=== PATIENT | male | born 1935 | race Caucasian/White ===

== ENCOUNTER 2018-05-17 16:00 | Inpatient (IN) | payer OTHER ==
[~2018-05-17] VITALS: Ht 177.8 cm; Wt 84.5 kg
--- NOTE | ~2018-05-17 | D ---
[facility] [place] [address] DISCHARGE SUMMARY Name: CLAUDINE HERRERA Room #: 216-P [facility] IN M.R.#: [id number] Admission: 05/17/18 Attend Phys: Lester Quiroz MD Discharge: 05/19/18 Date of : 35 Report #: [id number] THIS REPORT FOR: //name// CC: [facility] physician/PCP Lester Quiroz DISCHARGE DIAGNOSES: 1. Syncope. 2. Third-degree heart block. 3. Ischemic cardiomyopathy. PROCEDURES PERFORMED: [employer] biventricular pacemaker implantation. HISTORY OF PRESENT ILLNESS: The patient is an 82-year-old who has recently been having multiple syncopal episodes. He underwent front desk monitor placement, which showed frequent episodes of third-degree heart block. He underwent successful implantation of a [employer] biventricular pacemaker. There were no procedural complications. HOSPITAL COURSE: He was monitored overnight. On telemetry, he remained in an AV sequential paced rhythm. On the day of discharge, he underwent chest x-ray, which showed stable lead position, no pneumothorax. Device interrogation showed normal device function and his incision was healing nicely. DISCHARGE INSTRUCTIONS: As such, he was deemed stable for discharge home with instructions to follow up with me in 7-10 days for a site check. <ELECTRONICALLY SIGNED> By: Lester Quiroz MD 05/28/18 1448 [id number] 1238 Lester Quiroz MD /jrodan
--- NOTE | ~2018-05-17 | P ---
[facility] [place] [address] PROCEDURE REPORT Name: CLAUDINE HERRERA Room #: 216-P [facility] IN M.R.#: [id number] Admission: 05/17/18 Attend Phys: Lester Quiroz MD Discharge: 05/19/18 Date of : 35 Report #: [id number] THIS REPORT FOR: //name// CC: [facility] physician/PCP Lester Quiroz PROCEDURE: Bi-V pacemaker implantation. PREOPERATIVE DIAGNOSES: 1. Third-degree heart block. 2. Syncope. 3. Ischemic cardiomyopathy, ejection fraction of 35-40%. HISTORY: The patient is an 82-year-old gentleman who has history of coronary artery disease, ischemic cardiomyopathy of 35-40%, who has had multiple recurrent syncopal episodes in the past week. He has worn a inside tester, which showed multiple episodes of complete heart block. His most recent echo shows an EF of 35-40%. In anticipation of 100% right ventricular pacing, I have recommended that he undergo a biventricular pacemaker implantation. ANESTHESIA: The patient underwent MAC anesthesia with no anesthesia related complications. DESCRIPTION OF PROCEDURE: The patient underwent informed consent. We discussed the details of the procedure including the risks, which include but not limited to bleeding, infection, vascular damage, cardiac perforation as well as pneumothorax. He understood these risks and is willing to proceed. The patient was brought to the EP Laboratory in a fasting and sedated state and received IV antibiotics prior to initiation of the procedure. A venogram was performed demonstrating patency of the left axillary vein. Next, I injected lidocaine below the level of left clavicle, incision was made, pocket was created over the prepectoral fascia. Access was obtained 3 times to the left axillary vein. The first access was straightforward. The second attempts at access hit the artery twice, felt some pressure and then repositioned and I was able to find the vein for second and third time. Guidewires were noted to be into the right atrium. Next, sheaths were positioned using the modified Seldinger technique and leads were positioned under fluoroscopy. First, the RV lead was positioned in the right ventricular apex with adequate pacing and sensing thresholds, but the R waves did decrease and therefore prior to positioning the coronary sinus lead, I repositioned the RV lead and the numbers were improved. I then positioned the atrial lead and there was adequate pacing and sensing thresholds. The atrial and ventricular leads were sutured to the prepectoral fascia. Then I placed the guide sheath into the coronary sinus and obtained access to the coronary sinus with ease. I performed a coronary sinus venogram and there were 2 posterior lateral branches. There was one that was more proximal and another vessel that was more distal. I was able to engage the [facility] [address] [place] [address] PROCEDURE REPORT Name: DENIZAWAISCLAUDINE Room #: 216-P [facility] IN M.R.#: [id number] Admission: 05/17/18 Attend Phys: Lester Quiroz MD Discharge: 05/19/18 Date of : 35 Report #: [id number] more proximal vessel. This was a tortuous vessel, therefore we did switch to ____ wire that allowed this to deliver the lead deep into this vessel. There was adequate pacing and sensing thresholds at multiple sites with no diaphragmatic stimulation. Therefore, the sheath was split and the lead remained in position. The LV lead was sutured to the prepectoral fascia. Then, the device was connected to the leads, tested and all leads were functioning normally. The pocket was irrigated with vancomycin and then the pocket was closed in 3 layers using 2-0 for the deep layer, 3-0 for the mid layer, 4-0 for the subcuticular. Surgical glue was placed to the outer skin layer. The patient awoke neurologically and hemodynamically intact. No complications and no significant bleed. The implanted pacemaker was a [employer] model # [id number], serial #[id number]. Atrial lead was a [employer] model #2088TC, 52 cm; serial # [id number] with a P-wave of 2.4 millivolts, pacing impedance of 460 ohms and a pacing threshold 0.5 volts at 0.4 milliseconds. The RV lead was a [employer] model #2088TC, serial number was [id number]. This lead demonstrated R-wave of 10 millivolts, pacing impedance of 650 ohms and a pacing threshold of 0.5 volts at 0.4 milliseconds. The LV lead was a [employer] model #1458Q, 86 cm; serial [id number]. This lead demonstrated pacing threshold of 0.75 volts at 0.4 milliseconds with a pacing impedance of 660 ohms and we utilized the M3-P4 pacing configuration as this was more basal pacing configuration. The device was programmed to the DDDR 60-130 mode. CONCLUSIONS: 1. Successful Bi-V pacemaker implantation. 2. Satisfactory atrial, right ventricular and left ventricular pacing and sensing thresholds. <ELECTRONICALLY SIGNED> By: Lester Quiroz MD 05/28/18 1448 1306 0219 Lester Quiroz MD /nt
--- NOTE | ~2018-05-17 | EKG ---
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: DIONNE : 1935 Requested By: Lester Quiroz Order Number: [id number] MD: Anton Bird Measurements Intervals [place] Rate: 49 P: 10 [place]: 212 QRS: 116 QRSD: 179 T: 63 QT: 507 QTc: 458 Interpretive Statements Sinus bradycardia with first-degree AV block Right bundle branch block Compared to ECG 07/10/2001 06:46:44 Right bundle-branch block now present First degree AV block is now present Electronically Signed On 05-18-2018 16:41:30 CDT by Anton Bird [email or web address] <ELECTRONICALLY SIGNED> By: Anton Bird MD, [facility] 05/18/18 1641 0852 0852 Anton Bird MD, [facility] /EPI
[2018-05-17 16:41] LABS: HEMATOCRIT 39.3 % (42.0-52.0); HEMOGLOBIN 13.5 gm/dL (14.0-18.0); MCHC 34.4 g/dL (28.0-37.0); MCV 90.3 fL (80.0-100.0); RBC 4.35 mil/uL (4.50-6.00); WBC 6.9 thou/uL (4.0-11.0)
[2018-05-17 16:58] VITALS: BP 155/70
[2018-05-17] MEDS ORDERED: AMLODIPINE BESYL5 M1 PO (16:58)
[2018-05-17] MEDS ORDERED: ASPIR 8181 MG PO (16:59)
[2018-05-17] MEDS ORDERED: GLYBURIDE 2.52.5 MG PO (16:59)
[2018-05-17] MEDS ORDERED: CELEXA10 MG PO (16:59)
[2018-05-17 17:00] LABS: INR 1.1
[2018-05-17] MEDS ORDERED: OMEGA-31000 M1 PO (17:01)
[2018-05-17] MEDS ORDERED: PIOGLITAZONE15 MG (17:01)
[2018-05-17] MEDS ORDERED: ZOCOR20 MG PO (17:03)
[2018-05-17] MEDS ORDERED: PIOGLITAZONE15 MG PO (17:03)
[2018-05-17] MEDS ORDERED: PROTONIX40 M1 PO (17:03)
[2018-05-17 17:04] LABS: ALBUMIN 3.3 g/dL (3.4-5.0); CALCIUM 8.8 mg/dL (8.5-10.1); CREATININE 1.9 mg/dL (0.7-1.3); POTASSIUM 4.9 mmol/L (3.5-5.1); TOTAL BILIRUBIN 0.4 mg/dL (<0.1-1.0); TOTAL PROTEIN 6.8 g/dL (6.4-8.2)
[2018-05-17] MEDS ORDERED: MICARDIS HCT 81 EACH PO (17:04)
[2018-05-17 20:30] VITALS: BP 162/52
[2018-05-18] VITALS (12 sets, daily range): BP systolic 15–181; BP diastolic 52–66
[2018-05-19 00:08] VITALS: BP 142/67
[2018-05-19 04:45] VITALS: BP 149/53
[2018-05-19 08:10] VITALS: BP 141/68
[2018-05-19 10:21] VITALS: BP 141/68
== END 2018-05-19 11:02 | disposition home or self-care (01) | DRG 244 ==
LOC: 2N 16:00
PROVIDERS: Nurse Practitioner Gerontology
PROC: B51N1ZZ Fluoroscopy of Left Upper Extremity Veins using Low Osmolar Contrast (ICD-10-PCS; principal; 2018-05-18)
PROC: 02HK3JZ Insertion of Pacemaker Lead into Right Ventricle, Percutaneous Approach (ICD-10-PCS; principal; 2018-05-18)
PROC: 02HL3JZ Insertion of Pacemaker Lead into Left Ventricle, Percutaneous Approach (ICD-10-PCS; principal; 2018-05-18)
PROC: 02H63JZ Insertion of Pacemaker Lead into Right Atrium, Percutaneous Approach (ICD-10-PCS; principal; 2018-05-18)
PROC: 0JH607Z Insertion of Cardiac Resynchronization Pacemaker Pulse Generator into Chest Subcutaneous Tissue and Fascia, Open Approach (ICD-10-PCS; principal; 2018-05-18)
DX: I44.2 Atrioventricular block, complete (principal); I25.5 Ischemic cardiomyopathy; N18.9 Chronic kidney disease, unspecified; E11.22 Type 2 diabetes mellitus with diabetic chronic kidney disease; I12.9 Hypertensive chronic kidney disease with stage 1 through stage 4 chronic kidney disease, or unspecified chronic kidney disease; E78.00 Pure hypercholesterolemia, unspecified; I25.10 Atherosclerotic heart disease of native coronary artery without angina pectoris; I25.2 Old myocardial infarction; Z95.5 Presence of coronary angioplasty implant and graft; Z90.49 Acquired absence of other specified parts of digestive tract; Z79.899 Other long term (current) drug therapy
CPT/HCPCS: 10081; 62110; 62900; 70005

== ENCOUNTER 2019-01-29 17:56 | Inpatient (IN) | payer OTHER ==
[2019-01-29] VITALS (8 sets, daily range): BP systolic 145–179; BP diastolic 40–78
[~2019-01-29] VITALS: Ht 177.8 cm; Wt 87.4 kg
[~2019-01-29 17:56] MED LIST: AMLODIPINE BESYL5 M1 PO; ASPIR 8181 MG PO; CELEXA10 MG PO; GLYBURIDE 2.52.5 MG PO; MICARDIS HCT 81 EACH PO; OMEGA-31000 M1 PO; PIOGLITAZONE15 MG; PIOGLITAZONE15 MG PO; PROTONIX40 M1 PO; ZOCOR20 MG PO
--- NOTE | 2019-01-29 18:07 | NUR ---
CODE STROKE CALLED
[2019-01-29 18:47] LABS: ABSOLUTE NEUTROPHILS 4.1 thou/uL (1.4-8.2); BASOPHILS 1.2 % (0.0-2.0); EOSINOPHILS 2.2 % (0.0-3.0); HEMATOCRIT 38.9 % (42.0-52.0); HEMOGLOBIN 13.3 gm/dL (14.0-18.0); LYMPHOCYTES 19.9 % (24.0-44.0); MCH 30.5 pg (26.0-34.0); MCHC 34.2 g/dL (28.0-37.0); MCV 89.1 fL (80.0-100.0); PLATELET COUNT 116 thou/uL (150-400); POLYS 64.7 % (36.0-66.0); RBC 4.37 mil/uL (4.50-6.00); RDW 14.1 % (10.5-14.5); WBC 6.3 thou/uL (4.0-11.0)
[2019-01-29 18:54] LABS: ANION GAP 9 mmol/L (7-16); BUN 29 mg/dL (7-18); CHLORIDE 106 mmol/L (98-107); CO2 27 mmol/L (21-32); CREATININE 1.8 mg/dL (0.7-1.3); GLUCOSE 148 mg/dL (74-106); POTASSIUM 4.5 mmol/L (3.5-5.1); SODIUM 142 mmol/L (136-145)
[2019-01-29 18:58] LABS: APTT 26.6 Seconds (24.5-32.8); PROTIME 10.7 Seconds (9.3-11.4)
[2019-01-29 19:05] LABS: ALBUMIN 3.5 g/dL (3.4-5.0); SGOT 19 U/L (15-37); SGPT 29 U/L (30-65); TOTAL BILIRUBIN 0.5 mg/dL (<0.1-1.0); TROPONIN-I <0.06 ng/mL (<0.06)
[2019-01-30] VITALS (32 sets, daily range): BP systolic 104–167; BP diastolic 39–76
--- NOTE | 2019-01-30 01:05 | NUR ---
PT ARRIVED FROM ED AT 2047 ACCOMPANIED BY ED STAFF, JERICHO. PT ALERT AND ORIENTED X4. PT ABLE TO FOLLOW COMMANDS AND HAS BEEN APPROPRIATED. DENIES ANY DEFICITS AT THIS TIME. NIH CONSISTANTLY A 0 SINCE ARRIVAL. PT V-PACED ON THE MONITOR. BP PERMISSIVELY HYPERTENSIVE PER POST TPA PROTOCOL. STROKE PACKET AND INFORMATION PROVIDED TO PT. WILL CONTINUE TO MONITOR PT.
[2019-01-30 04:56] LABS: HEMATOCRIT 37.5 % (42.0-52.0); HEMOGLOBIN 12.9 gm/dL (14.0-18.0); MCH 30.8 pg (26.0-34.0); MCHC 34.3 g/dL (28.0-37.0); MCV 89.8 fL (80.0-100.0); RBC 4.17 mil/uL (4.50-6.00); RDW 13.9 % (10.5-14.5); WBC 6.9 thou/uL (4.0-11.0)
[2019-01-30 05:15] LABS: ANION GAP 8 mmol/L (7-16); BUN 27 mg/dL (7-18); CALCIUM 8.6 mg/dL (8.5-10.1); CHLORIDE 107 mmol/L (98-107); CHOLESTEROL 114 mg/dL (<200); CO2 26 mmol/L (21-32); CREATININE 1.5 mg/dL (0.7-1.3); GLUCOSE 159 mg/dL (74-106); HDL CHOLESTEROL 27 mg/dL (>40); LDL CHOLESTEROL 57 mg/dL (<100); POTASSIUM 3.8 mmol/L (3.5-5.1); SODIUM 141 mmol/L (136-145); TC:HDL 4.2 Ratio (Not establshd); TRIGLYCERIDE 154 mg/dL (<150); VLDL 31 mg/dL (<40)
[2019-01-30 05:16] LABS: SERUM ASSESSMENT Clear
--- NOTE | 2019-01-30 08:02 | EKG ---
[place] [address] [facility] [place] [address] ELECTROCARDIOGRAM REPORT Name: CLAUDINE HERRERA Room #: 242-P ADM IN M.R.#: [id number] ������������������ Admission: 01/29/19 ������������������ Attend Phys: Edwin Hendrickson MD Discharge: ������������������ Date of : 35 Report #: [id number] ����������������������������������������������������������������� [id number] THIS REPORT FOR: //name// [facility] ED Test Date: 2019-01-29 Test Time: 18:04:58 Pat Name: CLAUDINE HERRERA Department: Room: 242 Gender: M Supervisor Anodizing: Bere Holman : 1935 Requested By: Macho Tompkins Order Number: [id number] MD: Anton Bird Measurements Intervals [place] Rate: 64 P: 15 NC: 208 QRS: 214 QRSD: 146 T: 62 QT: 454 QTc: 469 Interpretive Statements Atrial-sensed ventricular-paced complexes No further analysis attempted due to paced rhythm Compared to ECG 05/18/2018 08:52:00 Sinus bradycardia no longer present Electronically Signed On 01-30-2019 8:02:10 CDT by Anton Bird [email or web address] ��������������������������������������������� <ELECTRONICALLY SIGNED> ���������������������������������������� By: Anton Bird MD, [facility] ��������������������������������������������� 01/30/19 0802 180 180 Anton Bird MD, [facility] /EPI
[2019-01-30 14:05] LABS: GLYCOHEMOGLOBIN (HGB A1C) 6.4 % (4.8-5.6)
--- NOTE | 2019-01-30 17:09 | NUR ---
INITIAL ASSESSMENT: Received consult for discharge planning. SW reviewed chart and spoke with nursing and attending physician. Pt was admitted from home due to acute CVA/LLE weakness. Pt had TPA-therapy evaluations on hold at this time. SW met with pt at bedside. Introduced role of SW. Pt is alert/orientated x 4. Pt reports he lives at home with his , who is in good health. Prior to admission, pt was independent with ADLs. Pt walks twice a day for exercise. Pt has 0 steps to enter and 14 steps inside the home. Pt's bedroom is on the ground level. Pt does not use any DME. No hx of SNF/Rehab placement. Pt has had HH services in the past following surgery. Pt is unsure of HH provider. Pt's PCP is Dr. Vianca Koo. Pt's c d stripper is Dr. Edmonds. PT/OT rosalio pending. Plan is for pt to discharge home when medically stable. SW is following to assist as needed with discharge planning.
[2019-01-31] VITALS (15 sets, daily range): BP systolic 113–155; BP diastolic 43–89
--- NOTE | 2019-01-31 04:39 | NUR ---
ASSUMED PT CARE AT 1900. PT IS ALERT AND ORIENTED. NO FAMILY AT BEDSIDE. PT DENIES ANY NEED & PAIN. ASSESSMENT CHARTED AND COMPLETED. VITAL SIGNS STABLE. PT IS TRANSPORTED FOR CT OF THE HEAD. PT DENIES ANY PAIN. SCHEDULED MEDS ADMINISTERED TO PT. PT TOLERATED PO INTAKE. PT IS STABLE THORUGHOUT THE NIGHT. FALL PRECAUTION IN PLACE. SCD'S PLACED ON PT. PT IS STABLE THROUGHOUT THE NIGHT. DENIES ANY FURTHER NEEDS AT THIS TIME.
--- NOTE | 2019-01-31 09:23 | HC ---
[facility] [place] [address] CONSULTATION Name: CLAUDINE HERRERA Room #: 242-P [facility] IN M.R.#: [id number] Admission: 01/29/19 ������������������ Attend Phys: Edwin Hendrickson MD Discharge: ������������������ Date of : 35 Report #: [id number] THIS REPORT FOR: //name// CC: REIC Hendrickson NEUROLOGY CONSULT HISTORY OF PRESENT ILLNESS: The patient is an 83-year-old male who came to the Emergency Room yesterday evening when he had difficulty moving his left leg. This occurred 45 minutes prior to arrival. En route, the patient regained the ability to move his leg, but while he was in the Emergency Room, he noticed a recurrence of symptoms and TPA was administered. Today, he has no evidence of lower extremity weakness. In fact, he states that he would like to go home. The patient denies ever having an episode like this in the past. He states that he was not taking aspirin prior to this event; however, I read in the record that he was taking aspirin 81 mg daily. PAST MEDICAL HISTORY: Coronary artery disease, cardiomyopathy, noninsulin dependent diabetes mellitus, hypertension, hypercholesterolemia, gastroesophageal reflux, depression/anxiety. PAST SURGICAL HISTORY: Coronary artery stent placement x 2, cholecystectomy, exploratory surgery of the right kidney. MEDICATIONS AT HOME: Norvasc 5 mg daily, aspirin 81 mg daily, citalopram 10 mg daily, glyburide 6 mg in the morning, fish oil 1000 mg daily, Actos 45 mg daily, pantoprazole 40 mg daily, simvastatin 20 mg at bedtime, Micardis daily. ALLERGIES: None. PHYSICAL EXAMINATION: VITAL SIGNS: Temperature 36.9, pulse rate 69, respiratory rate 15, blood pressure 160/54, bedside pulse oximetry 97% on 1 liter. NEUROLOGIC: Cranial nerves 2-12 are grossly intact. Motor exam demonstrates symmetrical strength in all 4 extremities with tone and bulk normal. Reflexes are symmetrical throughout. Coordination reveals intact [id number]. Casual gait was not tested. LABORATORY DATA: White blood cell count 6.9, hemoglobin 12.9, hematocrit 37.5, platelet count 99,000. INR 1. Chemistry: Sodium 141, potassium 3.8, chloride 107, carbon dioxide 26, BUN 27, creatinine 1.5, GFR 45, glucose 159. Liver functions normal. Triglyceride 154, cholesterol 114, LDL cholesterol 57, HDL cholesterol 27. IMAGING STUDIES: CT scan of the head is normal. [address] [address] CONSULTATION Name: CLAUDINE HERRERA Room #: 242-P [facility] IN ..#: [id number] Admission: 01/29/19 ������������������ Attend Phys: Edwin Hendrickson MD Discharge: ������������������ Date of : 35 Report #: [id number] IMPRESSION AND PLAN: This patient has done very well with TPA and has no residual symptoms. Because he was on aspirin 81 mg prior to this event, I would recommend 162 mg aspirin or 2 baby aspirin. I would not change his other medications. He should continue to monitor his blood pressure and his blood sugar. He should also follow up with Dr. Edmonds in the future. I thank you for your kind referral of this patient. ��������������������������������������������� <ELECTRONICALLY SIGNED> ���������������������������������������� By: Lupe Burdick DO ��������������������������������������������� 01/31/19 0923 1036 1813 Lupe Burdick DO /nt
[2019-01-31] MEDS ORDERED: ASPIR 8181 MG PO (13:29)
--- NOTE | 2019-01-31 14:44 | NUR ---
patient assessments and vital signs as documented. NIH as documented. Discharge instructions reviewed with patient. Iv's removed per physician order, without complication. Pt requested to ambulate out to vehicle. Spouse drove up vehicle to the door. Patient expressed he had all his belongings.
--- NOTE | 2019-01-31 15:15 | NUR ---
DISCHARGE NOTE: SW reviewed chart and spoke with nursing and attending physician. Pt is medically stable for discharge home. Pt's provided transportation home. NO addigtional SW needs identified at this time, but is available to assist should needs arise.
--- NOTE | 2019-02-08 10:01 | HC ---
[facility] [place] [address] CONSULTATION Name: CLAUDINE HERRERA Room #: 242-P [facility] IN M.R.#: [id number] Admission: 01/29/19 ������������������ Attend Phys: Edwin Hendrickson MD Discharge: 01/31/19 ������������������ Date of : 35 Report #: [id number] THIS REPORT FOR: //name// CC: ERIC Hendrickson DATE OF SERVICE: 01/30/2019 HISTORY OF PRESENT ILLNESS: The patient is an 83-year-old male who was admitted with acute left-sided weakness and decreased functional abilities. He actually lowered himself to the ground. He was admitted to [facility]. CT of the head was negative. TPA was given. He now notes that he has full movement again of that left lower extremity. He has been diagnosed with an acute CVA, status post TPA. MRI of the head was canceled as he has a pacemaker in place. We are seeing him in rehabilitation medicine consultation. PAST MEDICAL HISTORY: CO with 2 stents to the LAD. He has had the cholecystectomy cardiomyopathy, non-insulin dependent diabetes, hypertension, and hypercholesterolemia. HABITS: No history of tobacco or alcohol abuse. ALLERGIES: No known drug allergies. SOCIAL HISTORY: Lives in a house with his , no steps to get in, bedroom is on the ground level, there is a living area down on the lower level as well. He did not utilize gait aids. His could assist some if need be. REVIEW OF SYSTEMS: Did not offer any current complaints of chest pain, shortness of breath or abdominal discomfort. PHYSICAL EXAMINATION: GENERAL: The patient is a pleasant 83-year-old white male in no obvious distress. VITAL SIGNS: Last recorded temperature 98.2, pulse 60, respirations 14, and blood pressure 128/53. NEUROLOGIC: Facies appeared symmetric. He is a good historian, pleasant. EOMs are full. No visual field neglect to confrontation. Functional range of motion of both upper and lower extremities. No focal weakness was noted. Tone appeared to be intact. ASSESSMENT: An 83-year-old white male with the following problem list: 1. Cerebrovascular accident, acute with left lower extremity weakness, status post TPA. Appears to have had good resolution of symptomatology. 2. Insulin-dependent diabetes mellitus. 3. Coronary artery disease, status post stents. [address] [address] CONSULTATION Name: CLAUDINE HERRERA Room #: 242-P [facility] IN .R.#: [id number] Admission: 01/29/19 ������������������ Attend Phys: Edwin Hendrickson MD Discharge: 01/31/19 ������������������ Date of : 35 Report #: [id number] 4. History of cardiac pacemaker. 5. Hypertension. 6. Hyperlipidemia. PLAN: Therapy has been on hold because of the TPA. We will need to see how he does with therapy evaluations and progress from there. Thank you for asking us to assist in this patient's care. ��������������������������������������������� <ELECTRONICALLY SIGNED> ���������������������������������������� By: Miguelangel Coronel MD ��������������������������������������������� 02/08/19 1001 0912 1053 Miguelangel Coronel MD /nt
== END 2019-01-31 14:44 | disposition home or self-care (01) | DRG 61 ==
LOC: ER 17:56 → ICU 19:50 → EROBS 19:50 → ICU 20:43
PROVIDERS: Emergency Medicine; Nurse Practitioner Family; ADMIT Internal Medicine
DX: I63.9 Cerebral infarction, unspecified (principal); N17.0 Acute kidney failure with tubular necrosis; I42.9 Cardiomyopathy, unspecified; E78.00 Pure hypercholesterolemia, unspecified; I25.10 Atherosclerotic heart disease of native coronary artery without angina pectoris; K21.9 Gastro-esophageal reflux disease without esophagitis; I12.9 Hypertensive chronic kidney disease with stage 1 through stage 4 chronic kidney disease, or unspecified chronic kidney disease; F32.9 Major depressive disorder, single episode, unspecified; F41.9 Anxiety disorder, unspecified; N18.3 Chronic kidney disease, stage 3 (moderate); E11.22 Type 2 diabetes mellitus with diabetic chronic kidney disease; E78.5 Hyperlipidemia, unspecified; Z79.82 Long term (current) use of aspirin; Z79.899 Other long term (current) drug therapy; I25.2 Old myocardial infarction; Z95.5 Presence of coronary angioplasty implant and graft; Z90.49 Acquired absence of other specified parts of digestive tract; Z95.0 Presence of cardiac pacemaker; Z79.4 Long term (current) use of insulin
CPT/HCPCS: 10078; 10203

== ENCOUNTER → 2019-08-27 | Outpatient (CLI) | payer OTHER | LOC: SJCVC 09:32 | DX: Z45.018 Encounter for adjustment and management of other part of cardiac pacemaker (principal); I45.10 Unspecified right bundle-branch block; I44.2 Atrioventricular block, complete; R94.31 Abnormal electrocardiogram [ECG] [EKG]; I12.9 Hypertensive chronic kidney disease with stage 1 through stage 4 chronic kidney disease, or unspecified chronic kidney disease; E11.22 Type 2 diabetes mellitus with diabetic chronic kidney disease; N18.9 Chronic kidney disease, unspecified; I25.10 Atherosclerotic heart disease of native coronary artery without angina pectoris; I25.5 Ischemic cardiomyopathy; E78.00 Pure hypercholesterolemia, unspecified; Z79.82 Long term (current) use of aspirin; Z79.899 Other long term (current) drug therapy; Z82.49 Family history of ischemic heart disease and other diseases of the circulatory system ==

== ENCOUNTER → 2020-02-20 | Outpatient (CLI) | payer OTHER | LOC: SJCVC 10:16 | PROVIDERS: ATTEND Internal Medicine Cardiovascular Disease | DX: Z45.018 Encounter for adjustment and management of other part of cardiac pacemaker (principal); I25.10 Atherosclerotic heart disease of native coronary artery without angina pectoris; I25.5 Ischemic cardiomyopathy; I49.5 Sick sinus syndrome; I10 Essential (primary) hypertension; E78.00 Pure hypercholesterolemia, unspecified; E11.9 Type 2 diabetes mellitus without complications; Z79.899 Other long term (current) drug therapy; Z86.73 Personal history of transient ischemic attack (TIA), and cerebral infarction without residual deficits ==

== ENCOUNTER → 2020-03-17 | Outpatient (CLI) | payer OTHER | LOC: SJCVCIMAG 07:24 | PROVIDERS: ATTEND Internal Medicine Cardiovascular Disease | DX: I25.10 Atherosclerotic heart disease of native coronary artery without angina pectoris (principal); E78.5 Hyperlipidemia, unspecified; E11.9 Type 2 diabetes mellitus without complications; I25.2 Old myocardial infarction; I25.5 Ischemic cardiomyopathy; I11.9 Hypertensive heart disease without heart failure; I08.2 Rheumatic disorders of both aortic and tricuspid valves; I27.20 Pulmonary hypertension, unspecified; Z86.73 Personal history of transient ischemic attack (TIA), and cerebral infarction without residual deficits; Z79.82 Long term (current) use of aspirin; Z79.899 Other long term (current) drug therapy; Z95.0 Presence of cardiac pacemaker ==

== ENCOUNTER 2020-03-31 06:27 | Observation (INO) | payer OTHER ==
[~2020-03-31] VITALS: Ht 175.3 cm; Wt 86.2 kg
[2020-03-31 06:53] VITALS: BP 129/69
[2020-03-31] MEDS ORDERED: FOLIC ACID0.4 MG PO (07:00)
[2020-03-31] MEDS ORDERED: JANUVIA100 MG PO (07:01)
[2020-03-31] MEDS ORDERED: MICARDIS HCT 81 EACH PO (07:02)
[2020-03-31] MEDS ORDERED: SILDENAFIL CITR50 MG PO (07:05)
[2020-03-31 07:11] LABS: HEMATOCRIT 39.4 % (42.0-52.0); HEMOGLOBIN 13.7 gm/dL (14.0-18.0); MCH 31.3 pg (26.0-34.0); MCHC 34.7 g/dL (28.0-37.0); MCV 90.3 fL (80.0-100.0); RBC 4.36 mil/uL (4.50-6.00); RDW 14.1 % (10.5-14.5); WBC 6.7 thou/uL (4.0-11.0)
[2020-03-31 07:26] LABS: CALCIUM 8.9 mg/dL (8.5-10.1); CREATININE 1.7 mg/dL (0.7-1.3); POTASSIUM 4.3 mmol/L (3.5-5.1)
--- NOTE | 2020-03-31 08:28 | EKG ---
[facility] [place] [address] ELECTROCARDIOGRAM REPORT Name: CLAUDINE HERRERA Room #: [facility]#: [id number] Admission: 03/31/20 Attend Phys: Ashish Edmonds MD, Discharge: Date of : 35 Report #: [id number] THIS REPORT FOR: cc: Vianca Koo DNP, Mary E. DNP Lundgren, Craig H. MD [facility] THIS REPORT FOR: //name// [facility] Test Date: 2020-03-31 Test Time: 07:27:54 Pat Name: CLAUDINE HERRERA Department: Room: Gender: [place]: [facility] : 1935 Requested By: Ashish Edmonds Order Number: [id number] MD: Anton Bird Measurements Intervals [place] Rate: 60 P: 18 [place]: 191 QRS: 210 QRSD: 158 T: 92 QT: 478 QTc: 478 Interpretive Statements A-V dual-paced rhythm No further analysis attempted due to paced rhythm Compared to ECG 01/29/2019 18:04:58 No significant change was found Electronically Signed On 03-31-2020 8:28:38 CDT by Anton Bird [email or web address] <ELECTRONICALLY SIGNED> By: Anton Bird MD, [facility] 03/31/20 0828 07 6 Anton Bird MD, [facility] /EPI
[2020-03-31 11:45] VITALS: BP 151/68
[2020-03-31 16:00] VITALS: BP 153/69
--- NOTE | 2020-03-31 18:37 | NUR ---
ASSUMED CARE OF PT AT APPROX 1145 FROM [facility]. ADMISSION ORDERS AND INSTRUCTIONS COMPLETE. R GROIN SITE CDI, WITH NO BRUISING OR HEMATOMA. PLAN FOR DISCHARGE TOMORROW. WILL CONTINUE TO MONITOR AND FOLLOW POC.
[2020-03-31 20:25] VITALS: BP 126/68
[2020-04-01] VITALS: BP 141/57
--- NOTE | 2020-04-01 02:38 | NUR ---
ASSUMED CARE OF PATIENT AT 1900. PATIENT DENIES PAIN THROUGH NOC. RIGHT GROIN INCISION SITE REMAINS SOFT, PULSES PALPABLE, AND DRESSING C/D/I. WILL CONTINUE TO MONITOR.
[2020-04-01 04:50] VITALS: BP 150/52
[2020-04-01 05:41] LABS: HEMATOCRIT 37.4 % (42.0-52.0); HEMOGLOBIN 12.7 gm/dL (14.0-18.0); MCH 30.7 pg (26.0-34.0); MCHC 34.1 g/dL (28.0-37.0); MCV 90.2 fL (80.0-100.0); RBC 4.15 mil/uL (4.50-6.00); RDW 14.2 % (10.5-14.5); WBC 6.9 thou/uL (4.0-11.0)
[2020-04-01 05:52] LABS: ALBUMIN 2.9 g/dL (3.4-5.0); CALCIUM 8.2 mg/dL (8.5-10.1); CREATININE 1.1 mg/dL (0.7-1.3); POTASSIUM 3.9 mmol/L (3.5-5.1); TOTAL BILIRUBIN 0.6 mg/dL (0.2-1.0); TOTAL PROTEIN 6.1 g/dL (6.4-8.2)
[2020-04-01 06:15] LABS: TROPONIN-I 0.69 ng/mL (<0.06)
[2020-04-01] MEDS ORDERED: CLOPIDOGREL75 MG PO (07:42)
[2020-04-01 07:52] VITALS: BP 163/67
--- NOTE | 2020-04-01 08:37 | EKG ---
[facility] [place] [address] ELECTROCARDIOGRAM REPORT Name: CLAUDINE HERRERA Room #: 207-[facility] M.R.#: [id number] Admission: 03/31/20 Attend Phys: Ashish Edmonds MD, Discharge: Date of : 35 Report #: [id number] THIS REPORT FOR: cc: Vianca Koo DNP, Mary E. DNP Lundgren, Craig H. 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 : 1935 Requested By: Ashish Edmonds Order Number: [id number] MD: Anton Bird Measurements Intervals [place] Rate: 60 P: 26 SC: 190 QRS: 207 QRSD: 154 T: 68 QT: 489 QTc: 489 Interpretive Statements Atrial-ventricular dual-paced complexes No further analysis attempted due to paced rhythm Compared to ECG 03/31/2020 07:27:54 No significant changes Electronically Signed On 04-01-2020 8:36:53 CDT by Anton Bird [email or web address] <ELECTRONICALLY SIGNED> By: Anton Bird MD, [facility] 04/01/20 0836 0710 Anton Bird MD, [facility] /EPI
[2020-04-01 10:14] VITALS: BP 163/67
--- NOTE | 2020-04-01 12:34 | NUR ---
ASSESSMENT CHARTED. PT ALERT AND ORIENTED. VSS. DENIED HAVING PAIN OR DISCOMFORT. RIGHT GROIN INCISION C/D/I. NO HEMATOMA NOTED. SEEN BY DR. OLSON. ORDERS GIVEN TO DISCHARGE PT TO HOME. DISCHARGE INSTRUCTIONS GIVEN TO PT. PT VERBERLISED UNDERSTANDING. PT LEFT THE FACILITY ACCOMPANIED BY THE .
--- NOTE | 2020-04-01 20:19 | CATHLAB ---
[facility] [place] [address] INVASIVE PROCEDURE REPORT Name: CLAUDINE HERRERA Room #: 207-P [facility] Rupal Hoffman#: [id number] Admission: 03/31/20 Attend Phys: Ashish Edmonds MD, Discharge: 04/01/20 Date of : 35 Report #: [id number] THIS REPORT FOR: cc: Vianca Koo DNP, Mary E. DNP Mancuso, Gerald M. MD [facility] ~ APPROVED REPORT Study performed: 03/31/2020 09:05:52 Patient Details Patient Status: Out-Patient Room #: The patient is a 84 year-old male Event Personnel Ashish Edmonds Architecture Professor, June Eric RN RN, Radha Kearney Scrub, Lamar Suresh RTR Scrub, Kelley Otero RTR Monitor Procedures Performed Art Access - R femoral artery* Left Heart Cath w/or w/o Coronaries [id number] [facility] w/wo Plasty Single OM [id number] 82265 Initial Mod Sed Same Phys/QHP Gr5y 230144 45588 Mod Sed Same Phys/QHP Ea 405112 Hemostasis w/ Mynx Indication Chest pain Procedure Narrative The Right Groin^ was infiltrated with 1% Lidocaine subcutaneous anesthesia. A PINNACLE 6FR Sheath #[id number] sheath was inserted into the RFA^. Coronary angiography was performed using coronary diagnostic catheters. The right coronary system was accessed and visualized with a JR4 catheter. The left coronary system was accessed and visualized with a JL4 catheter. The left ventricle was accessed and visualized with a PIGTAIL catheter. Left ventriculogram was performed in 30 degree projection. Closure device was deployed with a 6 Fr MYNXGRIP 6/7F #[id number]. The patient tolerated the procedure well and there were no complications associated with the procedure. There was no hematoma. Intraoperative Conscious Sedation Sedation start time: 929 Case end Time: 1051 [facility] [place] [address] INVASIVE PROCEDURE REPORT Name: CLAUDINE HERRERA Room #: 207-P [facility] IN M.R.#: [id number] Admission: 03/31/20 Attend Phys: Ashish Edmonds, Discharge: 04/01/20 Date of : 35 Report #: [id number] Fentanyl 50 mcg Versed 1 mg Fluoro Time: 12.00 minutes Dose: DAP 47695.80 cGycm2 2478 mGy Contrast Type and Amount: Visipaque 165 ml Hemodynamics The aortic pressure is 149/56 mmHg with a mean of 88 mmHg. The left ventricular pressure is 153/10 mmHg with a mean of mmHg. The left ventricular end diastolic pressure is 26 mmHg. PCI Technique Lesion Percutaneous coronary intervention was performed on the first obtuse marginal branch segment. A LAUNCHER 6FR EBU 3.5 #[id number] Guide Catheter was used to engage the ostium. A Luge Wire .014 x 182CM #[id number] Interventional Guidewire was used to cross the lesion. BALLOON DILATION A Balloon catheter Sprinter OTW 2.25 x 15 #[id number] was inserted and inflated up to 12.00atm for 26seconds. Additional Inflation: 16.00atm for 28seconds. Additional Inflation: 18.00atm for 28seconds. ADDITIONAL BALLOON PLACED DISTALLY INTO THE SAME VESSEL, SPRINTER 2.25X12 WITH INFLATIONS OF 16ATM FOR 11 SECS,18 ESTHER FOR 15 SECS, AND 16 ESTHER FOR 18 SECS STENT DEPLOYMENT A drug-eluting stent RESOLUTE JAY OTW 2.5 X 18 #[id number] was inserted and inflated up to 12.00atm for 29seconds. ADDITIONAL STENT PLACED DISTALLY INTO THE SAME VESSEL, RESOLUTE JAY 2.25X12 WITH INFLATIONS OF 14 ESTHER FOR 25 SECS AND 20 ESTHER FOR 37 SECS Conclusion #1. Successful PTCA stent of the proximal and mid OM branch large in distribution 90% to 0% placement of a 2.5 x 18 resolute Jay followed by a 2.25 x 8 resolute [place] postdilated up to 2.5 mm in size SHYAM grade III flow #2 the proximal circumflex and mid distal circumflex and distal OM branches have mild disease #3 left main free of disease mildly calcified giving rise to LAD and circumflex #4 the LAD is a proximal placed stent previously placed mild in-stent restenosis 40 to 50% proximal mid vessel calcification noted this extends around the apex. Supplying an infarcted segment #4 predominately nondominant RCA with moderate disease throughout supplying little left ventricular myocardium [facility] [address] [place] [address] INVASIVE PROCEDURE REPORT Name: CLAUDINE HERRERA Room #: 207-P [facility] IN M.R.#: [id number] Admission: 08/25/20 Attend Phys: Ashish Edmonds, Discharge: 04/01/20 Date of : 35 Report #: [id number] normal left ventricular size anterior apex is severely hypokinetic mild globally reduced EF 35% range Recommendations and plan: Continue aggressive risk factor modification. Dual antiplatelet therapy has been initiated. Patient will transfer to CCU to follow post coronary stent protocol. Hemodynamically stable and pain-free <ELECTRONICALLY SIGNED> By: Ashish Edmonds MD, FACC 04/01/202018 18 18 Ashish Edmonds MD, FACC /INF
== END 2020-04-01 12:52 | disposition home or self-care (01) ==
LOC: CATH 06:27 → 2N 11:47
PROVIDERS: ADMIT Internal Medicine Cardiovascular Disease; ATTEND Internal Medicine Cardiovascular Disease
DX: I25.10 Atherosclerotic heart disease of native coronary artery without angina pectoris (principal); E78.00 Pure hypercholesterolemia, unspecified; I10 Essential (primary) hypertension; E11.9 Type 2 diabetes mellitus without complications; I42.8 Other cardiomyopathies; I25.2 Old myocardial infarction; Z79.899 Other long term (current) drug therapy; Z86.73 Personal history of transient ischemic attack (TIA), and cerebral infarction without residual deficits

== ENCOUNTER → 2020-09-01 | Outpatient (CLI) | payer OTHER ==
[~2020-09-01] MED LIST changes: +CLOPIDOGREL75 MG PO; +FOLIC ACID0.4 MG PO; +JANUVIA100 MG PO; +SILDENAFIL CITR50 MG PO
== END ==
LOC: SJCVC 10:17
PROVIDERS: ATTEND Internal Medicine Cardiovascular Disease
DX: I25.10 Atherosclerotic heart disease of native coronary artery without angina pectoris (principal); R94.31 Abnormal electrocardiogram [ECG] [EKG]; I45.4 Nonspecific intraventricular block; E78.00 Pure hypercholesterolemia, unspecified; I49.5 Sick sinus syndrome; I25.5 Ischemic cardiomyopathy; M17.0 Bilateral primary osteoarthritis of knee; E11.22 Type 2 diabetes mellitus with diabetic chronic kidney disease; I13.10 Hypertensive heart and chronic kidney disease without heart failure, with stage 1 through stage 4 chronic kidney disease, or unspecified chronic kidney disease; N18.9 Chronic kidney disease, unspecified; D63.1 Anemia in chronic kidney disease; G89.29 Other chronic pain; I63.9 Cerebral infarction, unspecified; Z95.0 Presence of cardiac pacemaker; Z96.649 Presence of unspecified artificial hip joint; Z95.828 Presence of other vascular implants and grafts; Z98.890 Other specified postprocedural states; Z90.49 Acquired absence of other specified parts of digestive tract; Z79.82 Long term (current) use of aspirin; Z79.899 Other long term (current) drug therapy; Z86.73 Personal history of transient ischemic attack (TIA), and cerebral infarction without residual deficits; Z82.49 Family history of ischemic heart disease and other diseases of the circulatory system

== ENCOUNTER → 2021-03-30 | Outpatient (CLI) | payer OTHER | LOC: SJCVCIMAG 07:37 | PROVIDERS: ATTEND Internal Medicine Cardiovascular Disease | DX: R06.00 Dyspnea, unspecified (principal); I25.2 Old myocardial infarction; I25.10 Atherosclerotic heart disease of native coronary artery without angina pectoris; E78.00 Pure hypercholesterolemia, unspecified; I25.5 Ischemic cardiomyopathy; I49.5 Sick sinus syndrome; E11.22 Type 2 diabetes mellitus with diabetic chronic kidney disease; I12.9 Hypertensive chronic kidney disease with stage 1 through stage 4 chronic kidney disease, or unspecified chronic kidney disease; N18.9 Chronic kidney disease, unspecified; I63.9 Cerebral infarction, unspecified; Z95.0 Presence of cardiac pacemaker; Z79.899 Other long term (current) drug therapy; Z79.82 Long term (current) use of aspirin ==

== ENCOUNTER → 2021-09-01 | Outpatient (CLI) | payer OTHER | LOC: SJCVC 13:49 | PROVIDERS: ATTEND Internal Medicine Cardiovascular Disease | DX: I25.5 Ischemic cardiomyopathy (principal); I49.5 Sick sinus syndrome; R55 Syncope and collapse; I44.2 Atrioventricular block, complete; E11.9 Type 2 diabetes mellitus without complications; E78.00 Pure hypercholesterolemia, unspecified; I12.9 Hypertensive chronic kidney disease with stage 1 through stage 4 chronic kidney disease, or unspecified chronic kidney disease; N18.9 Chronic kidney disease, unspecified; E11.22 Type 2 diabetes mellitus with diabetic chronic kidney disease; I25.10 Atherosclerotic heart disease of native coronary artery without angina pectoris; Z95.0 Presence of cardiac pacemaker; Z79.82 Long term (current) use of aspirin; Z79.899 Other long term (current) drug therapy; Z82.49 Family history of ischemic heart disease and other diseases of the circulatory system ==